=== PATIENT | female | born 1980 | race Caucasian/White ===

== ENCOUNTER → 2019-10-31 13:20 | Outpatient (CLI) | payer BC, SELFPAY ==
--- NOTE | ~2019-10-31 | MM_ITS ---
EXAMINATION: MM screening abisai BI w tejas HISTORY: Baseline screening mammogram TECHNIQUE: Craniocaudal and mediolateral oblique 3-D tomosynthesis images were obtained and synthetic 2-D images were generated. CAD analysis was submitted and interpreted. COMPARISON: None, baseline BREAST PARENCHYMAL COMPOSITION: The breasts are heterogeneously dense, which may obscure small masses . FINDINGS: RIGHT BREAST: There is a possible mass of the posterior third of the lower inner breast best apprecia lucia 8 cm from the nipple. LEFT BREAST: There is no evidence of suspicious mass, calcification, or architectural distortion to s uggest malignancy. IMPRESSION: 1. Possible right breast mass 2. Additional mammographic views and possible breast ultrasound are recommended to evaluate for winsome gaines and establish a baseline given that this is the first mammographic examination. BI-RADS Category 0: Incomplete: Needs additional imaging evaluation. Reviewed, dictated and finalized at location A. IMPRESSION: 1. Possible right breast mass 2. Additional mammographic views and possible breast ultrasound are recommended to evaluate for malignancy and establish a baseline given that this is the fir st mammographic examination. BI-RADS Category 0: Incomplete: Needs additional imaging evaluation.
== END ==
PROVIDERS: PCP Internal Medicine; Visit Provider Obstetrics & Gynecology
DX: Z12.31 Encounter for screening mammogram for malignant neoplasm of breast (principal); R92.8 Other abnormal and inconclusive findings on diagnostic imaging of breast
CPT/HCPCS: 77063; 77067

== ENCOUNTER → 2019-11-13 14:21 | Outpatient (CLI) | payer BC, SELFPAY ==
--- NOTE | ~2019-11-13 | MMUS_ITS ---
EXAMINATION: MM diagnostic mammo unilat RT, US breast RT limited HISTORY: Follow-up right breast mass TECHNIQUE: Additional 3-D tomosynthesis images of the right breast were performed and synthetic 2-D i mages were generated. CAD analysis was submitted and interpreted. High resolution right breast ultras ound was performed. COMPARISON: 10/31/2019 BREAST PARENCHYMAL COMPOSITION: The breasts are heterogenously dense, which may obscure small masses FINDINGS: MAMMOGRAPHIC FINDINGS: There is a mass in the lower inner quadrant of the left breast, middle third, measuring approximately 12 mm greatest dimension, partially obscured by fibroglandular tissue. ULTRASOUND: Right breast ultrasound: At 4:00, 4 cm from the nipple, there is an oval circumscribed hypoechoic mass measuring 11 x 5 x 11 m m. No internal vascularity or posterior features. No other mass identified. IMPRESSION: 1. Probable benign 11 mm right breast mass at 4:00, 4 cm from the nipple. 2. Recommend 6 month follow-up right diagnostic mammogram and ultrasound. BI-RADS category 3, probably benign findings. Reviewed, dictated and finalized at location A. IMPRESSION: 1. Probable benign 11 mm right breast mass at 4:00, 4 cm from the nipple. 2. Recommend 6 month follow-up right diagnostic mammogram and ultrasound. BI-RADS category 3, probably benign findings.
== END ==
PROVIDERS: PCP Internal Medicine; Visit Provider Obstetrics & Gynecology
DX: R92.8 Other abnormal and inconclusive findings on diagnostic imaging of breast (principal)
CPT/HCPCS: 76642; 77065

== ENCOUNTER 2020-06-11 08:19 | Outpatient (CLI) | payer BC, SELFPAY ==
[2020-06-11 08:34] LABS: Basophils Absolute Auto 0.04 K/mm3 (0.00-0.10); Basophils Percent Auto 0.8 % (0.0-1.0); Eosinophils Absolute Auto 0.12 K/mm3 (0.02-0.50); Eosinophils Percent Auto 2.3 % (1.0-6.0); Hematocrit 44.6 % (35.0-49.0); Immature Granulocyte Absolute 0.01 K/mm3 (0.00-0.00); Immature Granulocyte Percent A 0.2 % (0.0-0.0); Lymphocytes Absolute Auto 1.88 K/mm3 (1.10-4.50); Lymphocytes Percent Auto 36.4 % (18.0-42.0); Mean Corpuscular HGB Conc 33.6 g/dL (32.0-36.0); Mean Corpuscular Hemoglobin 30.2 pg (27.0-31.0); Mean Corpuscular Volume 89.7 fL (78.0-102.0); Mean Platelet Volume 10.8 fl (9.2-11.8); Monocytes Absolute Auto 0.46 K/mm3 (0.10-0.90); Monocytes Percent Auto 8.9 % (2.0-11.0); Neutrophils Absolute Auto 2.7 K/mm3 (1.7-7.2); Neutrophils Percent Auto 51.4 % (50.0-70.0); Platelet Count Result 216 K/mm3 (150-420); Red Blood Count 4.97 M/mm3 (4.20-5.40); Red Cell Distribution Width 12.5 % (11.6-14.4); White Blood Count 5.2 K/mm3 (4.8-10.8)
[2020-06-11 08:36] LABS: Add Urine Microscopic? NO; Appearance Urine Clear (Clear); Bilirubin Urine Negative (Negative); Blood Urine Negative (Negative); Color Urine Yellow (Yellow); Glucose Urine UA Negative (Negative); Ketones Urine Negative (Negative); Leukocyte Esterase Ur Negative LEU/UL (Negative); Nitrate Urine Negative (Negative); Protein Urine Negative (Negative); Specific Grav Ur 1.025 (1.010-1.020); Urobilinogen Urine 0.2 mg/dL (0.2-1.0)
[2020-06-11 09:28] LABS: Alanine Aminotransferase 29 U/L (14-59); Albumin Level 4.2 g/dL (3.4-5.0); Alkaline Phosphatase 77 U/L (46-116); Anion Gap 12 mmol/L (8-16); Aspartate Amino Transferase 18 U/L (15-37); Bilirubin,Total 0.6 mg/dL (0.00-1.00); Blood Urea Nitrogen 10 mg/dL (7-18); Calcium 8.9 mg/dL (8.5-10.1); Carbon Dioxide 25 mmol/L (21-32); Chloride 103 mmol/L (98-108); Cholesterol 131 mg/dL (0-200); Estimated Glomerular Filt Rate > 60; Free T4 Free Thyroxine 1.08 ng/dL (0.76-1.46); Glucose 103 mg/dL (70-99); HDL Direct 50 mg/dL (40-60); LDL Cholesterol Calculated 70 mg/dL (<130); Osmolality Calculated 289 mOsm/kg (285-295); Sodium 140 mmol/L (136-145); Thyroid Stimulating Hormone 1.32 uIU/mL (0.36-3.74); Total Protein 7.2 g/dL (6.4-8.2); Triglycerides 54 mg/dL (0-150)
[2020-06-13 09:49] LABS: Hemoglobin A1C 5.5 % (<5.7)
== END 2020-06-11 08:20 | disposition home or self-care (01) ==
LOC: CHSLAB 08:22
PROVIDERS: PCP Internal Medicine; Visit Provider Nurse Practitioner Family
DX: Z00.00 Encounter for general adult medical examination without abnormal findings (principal); R73.09 Other abnormal glucose
CPT/HCPCS: 36415; 80053; 80061; 81003; 83036; 84439; 84443; 85025

== ENCOUNTER → 2020-07-09 09:46 | Outpatient (CLI) | payer BC, SELFPAY ==
--- NOTE | ~2020-07-09 | MMUS_ITS ---
EXAMINATION: MM diagnostic abisai RT w tejsa, US breast RT limited HISTORY: Follow-up right breast mass TECHNIQUE: Additional 3-D tomosynthesis images of the right breast were performed and synthetic 2-D i mages were generated. CAD analysis was submitted and interpreted. High resolution Limited right breas t ultrasound was performed. COMPARISON: 10/31/2019 BREAST PARENCHYMAL COMPOSITION: The breasts are heterogenously dense, which may obscure small masses. FINDINGS: MAMMOGRAPHIC FINDINGS: There is a persistent mass in the lower inner quadrant of the right breast, middle third measuring 1. 5 cm maximum dimension on spot CC view. There are no suspicious calcifications or architectural disto rtion. ULTRASOUND: Limited right breast ultrasound: At 4:00, 4 cm from the nipple, there is a slightly irregular shaped hypoechoic mass measuring 12 x 10 x 6 mm without internal vascularity. Parallel orientation. Mixed posterior attenuation. IMPRESSION: 1. Slight enlargement of right breast mass at 4:00, 4 cm from the nipple. 2. Ultrasound-guided right breast biopsy recommended. BI-RADS category 3, probably benign findings. Reviewed, dictated and finalized at location A. IMPRESSION: 1. Slight enlargement of right breast mass at 4:00, 4 cm from the nipple. 2. Ultrasound-guided right breast biopsy recommended. BI-RADS category 3, probably benign findings.
== END ==
PROVIDERS: PCP Internal Medicine; Visit Provider Obstetrics & Gynecology
DX: N63.14 Unspecified lump in the right breast, lower inner quadrant (principal)
CPT/HCPCS: 76642; 77061; 77065; G0279

== ENCOUNTER 2022-01-30 07:39 | Outpatient (CLI) | payer BC, SELFPAY ==
[2022-01-30 08:00] LABS: Basophils Absolute Auto 0.02 K/mm3 (0.00-0.10); Basophils Percent Auto 0.4 % (0.0-1.0); Eosinophils Absolute Auto 0.07 K/mm3 (0.02-0.50); Eosinophils Percent Auto 1.6 % (1.0-6.0); Hematocrit 46.8 % (35.0-49.0); Hemoglobin 15.8 g/dL (12.0-15.0); Immature Granulocyte Absolute 0.01 K/mm3 (0.00-0.00); Immature Granulocyte Percent A 0.2 % (0.0-0.0); Lymphocytes Absolute Auto 1.69 K/mm3 (1.10-4.50); Lymphocytes Percent Auto 37.5 % (18.0-42.0); Mean Corpuscular HGB Conc 33.8 g/dL (32.0-36.0); Mean Corpuscular Volume 91.8 fL (78.0-102.0); Mean Platelet Volume 11.4 fl (9.2-11.8); Monocytes Absolute Auto 0.38 K/mm3 (0.10-0.90); Monocytes Percent Auto 8.4 % (2.0-11.0); Neutrophils Absolute Auto 2.3 K/mm3 (1.7-7.2); Neutrophils Percent Auto 51.9 % (50.0-70.0); Platelet Count Result 197 K/mm3 (150-420); Red Cell Distribution Width 12.1 % (11.6-14.4); White Blood Count 4.5 K/mm3 (4.8-10.8)
[2022-01-30 08:24] LABS: Hemoglobin A1C 5.4 % (<5.7)
[2022-01-30 09:10] LABS: Alanine Aminotransferase 25 U/L (14-59); Albumin Level 4.3 g/dL (3.4-5.0); Alkaline Phosphatase 78 U/L (46-116); Anion Gap 9 mmol/L (8-16); Aspartate Amino Transferase 15 U/L (15-37); Bilirubin,Total 0.5 mg/dL (0.00-1.00); Blood Urea Nitrogen 13 mg/dL (7-18); Calcium 9.1 mg/dL (8.5-10.1); Carbon Dioxide 28 mmol/L (21-32); Chloride 104 mmol/L (98-108); Cholesterol 142 mg/dL (0-200); Estimated Glomerular Filt Rate > 60; Ferritin 118 ng/mL (8-252); Folic Acid 19.5 ng/mL (8.6->20); Glucose 89 mg/dL (70-99); HDL Direct 48 mg/dL (40-60); Iron 113 ug/dL (50-170); LDL Cholesterol Calculated 75 mg/dL (<130); Osmolality Calculated 291 mOsm/kg (285-295); Percent Iron Saturation 39 % (12-57); Potassium 4.1 mmol/L (3.5-5.1); Sodium 141 mmol/L (136-145); Total Protein 7.3 g/dL (6.4-8.2); Triglycerides 93 mg/dL (0-150); Vitamin B12 664 pg/mL (193-986)
[2022-01-30 09:11] LABS: Thyroid Stimulating Hormone Reflex 1.41 u/IU/mL (0.36-3.74)
[2022-02-02 14:36] LABS: FSH 4.6 mIU/mL (***); Progesterone 9.5 ng/mL (***); Prolactin 13.9 ng/mL (***)
[2022-02-04 12:22] LABS: Vitamin D 25 Hydroxy 43 ng/mL (30-100)
[2022-02-05 21:17] LABS: Estradiol, Ultrasensitive 80 pg/mL
== END 2022-01-30 07:40 | disposition home or self-care (01) ==
PROVIDERS: PCP Internal Medicine; Visit Provider Obstetrics & Gynecology
DX: Z00.00 Encounter for general adult medical examination without abnormal findings (principal); R53.83 Other fatigue
CPT/HCPCS: 36415; 80053; 80061; 82306; 82607; 82670; 82728; 82746; 83001; 83036; 83540; 83550; 84144; 84146; 84443; 85025

== ENCOUNTER → 2022-04-23 14:08 | Outpatient (CLI) | payer BC, SELFPAY ==
--- NOTE | ~2022-04-23 | MM_ITS ---
EXAMINATION: MM screening abisai BI w tejas HISTORY: Screening mammogram TECHNIQUE: Craniocaudal and mediolateral oblique 3-D tomosynthesis images were obtained and synthetic 2-D images were generated. CAD analysis was submitted and interpreted. COMPARISON: No prior mammogram is available for comparison at this institution. BREAST PARENCHYMAL COMPOSITION: The breasts are heterogeneously dense, which may obscure small masses . FINDINGS: Biopsy marker on the right; history of prior benign right breast biopsies in 1999 and 2020. There is no evidence of suspicious mass, calcification, or architectural distortion to suggest malig eder in either breast. There has been no suspicious interval change. IMPRESSION: 1. No mammographic evidence of malignancy. 2. Recommend routine screening mammography in one year. BI-RADS Category 1: Negative Reviewed, dictated and finalized at location A. ER OPERATOR PIN
== END ==
PROVIDERS: PCP Internal Medicine; Visit Provider Obstetrics & Gynecology
DX: Z12.31 Encounter for screening mammogram for malignant neoplasm of breast (principal)
CPT/HCPCS: 77063; 77067

== ENCOUNTER 2022-06-25 13:51 | Emergency (ER) | payer BC, SELFPAY ==
[2022-06-25] VITALS (9 sets, daily range): BP systolic 139–175; BP diastolic 100–112; PULSE 70–89; RESP 14–18; TEMP 36.9; O2SAT 98–100
--- NOTE | 2022-06-25 14:22 | ECG_ITS ---
Measurements Intervals [place] Rate: 73 P: 18 SC: 163 QRS: 16 QRSD: 93 T: 57 QT: 390 QTc: 431 Interpretive Statements SINUS RHYTHM DELAYED PRECORDIAL R/S TRANSITION BASELINE ARTIFACT- I, II, AVR BORDERLINE ECG NO PREVIOUS ECG AVAILABLE FOR COMPARISON Electronically Signed On 06-25-2022 15:50:30 BRAILLE CODER by Mesfin Stevenson D.O.
[2022-06-25] MEDS: ALPRAZolam (*CRX) 0.5 MG TABLET PO (14:36)
[2022-06-25 14:41] LABS: Basophils Absolute Auto 0.04 K/mm3 (0.00-0.10); Basophils Percent Auto 0.6 % (0.0-1.0); Eosinophils Absolute Auto 0.14 K/mm3 (0.02-0.50); Eosinophils Percent Auto 1.9 % (1.0-6.0); Hematocrit 45.3 % (35.0-49.0); Hemoglobin 15.5 g/dL (12.0-15.0); Immature Granulocyte Absolute 0.02 K/mm3 (0.00-0.00); Immature Granulocyte Percent A 0.3 % (0.0-0.0); Lymphocytes Absolute Auto 2.06 K/mm3 (1.10-4.50); Lymphocytes Percent Auto 28.5 % (18.0-42.0); Mean Corpuscular HGB Conc 34.2 g/dL (32.0-36.0); Mean Corpuscular Hemoglobin 31.3 pg (27.0-31.0); Mean Corpuscular Volume 91.3 fL (78.0-102.0); Monocytes Percent Auto 6.9 % (2.0-11.0); Neutrophils Absolute Auto 4.5 K/mm3 (1.7-7.2); Neutrophils Percent Auto 61.8 % (50.0-70.0); Platelet Count Result 228 K/mm3 (150-420); Red Blood Count 4.96 M/mm3 (4.20-5.40); Red Cell Distribution Width 12.5 % (11.6-14.4); White Blood Count 7.2 K/mm3 (4.8-10.8)
[2022-06-25 14:56] LABS: Alanine Aminotransferase 19 U/L (14-59); Albumin Level 4.2 g/dL (3.4-5.0); Alkaline Phosphatase 75 U/L (46-116); Anion Gap 10 mmol/L (8-16); Aspartate Amino Transferase 18 U/L (15-37); Bilirubin,Total 0.3 mg/dL (0.00-1.00); Blood Urea Nitrogen 13 mg/dL (7-18); Calcium 9.3 mg/dL (8.5-10.1); Carbon Dioxide 27 mmol/L (21-32); Chloride 105 mmol/L (98-108); Estimated CRCL calculation 84 ml/min; Estimated Glomerular Filt Rate > 60; Glucose 99 mg/dL (70-99); Osmolality Calculated 294 mOsm/kg (285-295); Potassium 3.6 mmol/L (3.5-5.1); Sodium 142 mmol/L (136-145); Total Protein 7.8 g/dL (6.4-8.2)
[2022-06-25] MEDS: LOSARTAN POTASSIUM 25 MG TABLET PO (15:20)
--- NOTE | 2022-06-25 15:25 | ED.GENADULT ---
HPI - General Adult General Chief complaint: Unspecified Stated complaint: high blood pressure Time Seen by Provider: 06/25/22 14:22 Source: patient Mode of arrival: ambulatory Limitations: no limitations History of Present Illness HPI narrative: this is a 41-year-old female that presents with elevated blood pressure, the patient states that she has been having elevated blood pressure readings but not quite as high as it was today initially her systolic blood pressure was 203, patient had a mild headache some mild blurry vision with no chest pain no shortness of breath no fever chills no abdominal pain no flank pain or dysuria. Onset (ago): day(s) Related Data Allergies Allergy/AdvReac Type Severity Reaction Status Date / Time No Known Allergies Allergy Verified 06/25/22 14:16 Review of Systems Review of Systems: All systems reviewed & are unremarkable except as noted in HPI and below PMFSH Past Medical History Medical History Encounter for insertion of mirena IUD 2017 Encounter for IUD removal Family History Family History Grandparent Breast cancer Mother Cancer of kidney Father Diabetes mellitus Social History Social History Smoking status: Never smoker Alcohol intake: current Substance use: never Substance use type: does not use Living arrangements: with family Occupation/Education: occupation Gender identity (if verbalized by the patient): Female Sexual Orientation (if Verbalized by the Patient): Straight or Heterosexual Exam Const: General: cooperative, healthy appearing, comfortable, no acute distress and well developed HENMT: Head: normal to inspection Ears: hearing grossly normal bilaterally Face/Nose/Sinus: Normal external nose present Face and sinus: normal facial exam Teeth and gingiva: dentition normal Throat: posterior oropharynx normal Eyes: General: appearance normal, both eyes and all related structures Visual Levin: normal visual levin by confrontation Alignment and Position: alignment normal Periorbital: periorbital findings normal Eyelids: eyelids normal Conjunctivae: conjunctivae normal Neck: Neck: normal visual inspection, full ROM, no lymphadenopathy and no meningeal signs Chest: Chest palpation & inspection: normal inspection of the chest Resp: Effort & Inspection: normal respiratory effort and able to speak in complete sentences Cardio: Jugular venous distension: no JVD Palpation: normal PMI Rate: regular rate Rhythm: regular rhythm Heart sounds: S1 normal heart sound present and S2 normal heart sound present GI: Inspection: normal to inspection : General: Yes bimanual renal exam normal bilaterally Back/Spine/Pelvis: Back: no CVA tenderness Cervical Spine: normal cervical lordosis and cervical ROM normal Thoracic/Lumbar Spine: thoracic and lumbar spine normal to inspection and thoraco-lumbar ROM normal Skin: General skin exam: normal color and no rashes or lesions noted Neuro: General: oriented to person, oriented to place, oriented to time and patient oriented x3 Extrem: General: normal to inspection, full ROM and capillary refill normal Psych: Appearance: grossly normal Mental Status: mental status grossly normal Affect: Anxious affect present Attitude: cooperative Course Course Emergency Course: Labs reviewed with patient and within normal limits EKG reviewed which shows no acute ST or T changes, urinalysis is reviewed. The patient did feel anxious and initially blood pressure was 203 systolic and then subsequently was 175/112 and patient did receive a dose of Xanax current blood pressure 139/102 and will give a dose of p.o. losartan 25mg. spoke to patient about regular diet exercise to reduce her blood pressure, limit alcohol, limit caffeine and limit salt intake. Vit
[2022-06-25 15:33] LABS: Appearance Urine Clear (Clear); Bilirubin Urine Negative (Negative); Blood Urine 3+ (Negative); Color Urine Light Yellow (Yellow); Glucose Urine UA Negative (Negative); Ketones Urine Negative (Negative); Leukocyte Esterase Ur 1+ LEU/UL (Negative); Nitrate Urine Negative (Negative); Protein Urine Negative (Negative)
[2022-06-25 15:37] LABS: Add Urine Microscopic? YES
[2022-06-25 15:38] LABS: Bacteria Urine 2+ /hpf; Squamous Epithelial Cell Urine Few /hpf (Few)
--- NOTE | 2022-06-27 18:23 | PC.NURSE ---
FINAL URINE CULTURE REPORT: No growth. no action needed.
== END 2022-06-25 15:57 | disposition home or self-care (01) ==
PROVIDERS: Emergency Provider Emergency Medicine; PCP Internal Medicine
DX: I10 Essential (primary) hypertension (principal); N39.0 Urinary tract infection, site not specified
CPT/HCPCS: 36415; 80053; 81001; 85025; 87086; 93005; 99283; A9270

== ENCOUNTER 2023-07-27 16:04 | Outpatient (CLI) | payer BC, SELFPAY ==
--- NOTE | ~2023-07-27 | MM_ITS ---
EXAMINATION: MM screening abisai BI w tejas HISTORY: Screening TECHNIQUE: Craniocaudal and mediolateral oblique 3-D tomosynthesis images were obtained and synthetic 2-D images were generated. CAD analysis was submitted and interpreted. COMPARISON: Comparison to multiple prior studies sequentially, with oldest reviewed study dated 10/2019. BREAST PARENCHYMAL COMPOSITION: Dense: The breasts are heterogeneously dense, which may obscure small masses FINDINGS: There is no evidence of suspicious mass, calcification, or architectural distortion to sugg est malignancy in either breast. There has been no suspicious interval change. IMPRESSION: 1. No mammographic evidence of malignancy. 2. Recommend routine screening mammography in one year. BI-RADS Category 1: Negative Reviewed, dictated and finalized at location A.
== END 2023-07-27 16:05 ==
LOC: MICIMG 16:05
PROVIDERS: PCP Obstetrics & Gynecology; Visit Provider Obstetrics & Gynecology
DX: Z12.31 Encounter for screening mammogram for malignant neoplasm of breast (principal)
CPT/HCPCS: 77063; 77067

== ENCOUNTER 2024-08-11 09:53 | Outpatient (CLI) | payer BC, SELFPAY ==
--- NOTE | ~2024-08-11 | MM_ITS ---
EXAMINATION: MM screening abisai BI w tejas HISTORY: Screening TECHNIQUE: Craniocaudal and mediolateral oblique 3-D tomosynthesis images were obtained and synthetic 2-D images were generated. CAD analysis was submitted and interpreted. COMPARISON: Comparison to multiple prior studies sequentially, with oldest reviewed study dated 10/2019. BREAST PARENCHYMAL COMPOSITION: Dense: The breasts are heterogeneously dense, which may obscure small masses FINDINGS: The left breast is stable without evidence for malignancy. There is focal low-density mass in the lower inner quadrant of the right breast with associated tissue marker which has increased in size compared with 2023. IMPRESSION: 1. Enlarging right breast mass, lower inner quadrant, posterior third. 2. Additional mammographic views and possible breast ultrasound are recommended. BI-RADS Category 0: Incomplete: Needs additional imaging evaluation. Reviewed, dictated and finalized at location B. IMPRESSION: 1. Enlarging right breast mass, lower inner quadrant, posterior third. 2. Additional mammographic views and possible breast ultrasound are recommended . BI-RADS Category 0: Incomplete: Needs additional imaging evaluation.
== END 2024-08-11 09:54 | disposition home or self-care (01) ==
PROVIDERS: Visit Provider Obstetrics & Gynecology
DX: Z12.31 Encounter for screening mammogram for malignant neoplasm of breast (principal); R92.8 Other abnormal and inconclusive findings on diagnostic imaging of breast
CPT/HCPCS: 77063; 77067

== ENCOUNTER 2024-08-31 08:17 | Outpatient (CLI) | payer BC, SELFPAY ==
--- NOTE | ~2024-08-31 | MMUS_ITS ---
EXAMINATION: MM diagnostic abisai RT w tejas, US breast RT limited HISTORY: Follow-up right breast asymmetry TECHNIQUE: Additional 3-D tomosynthesis images of the right breast were performed and synthetic 2-D i mages were generated. CAD analysis was submitted and interpreted. High resolution Limited right breas t ultrasound was performed. COMPARISON: Comparison to multiple prior studies sequentially, with oldest reviewed study dated 10/2021. BREAST PARENCHYMAL COMPOSITION: Dense: The breasts are heterogeneously dense, which may obscure small masses FINDINGS: MAMMOGRAPHIC FINDINGS: There is a focal asymmetry in the lower inner quadrant of the right breast with adjacent tissue marke r. There is previous benign biopsy of the right breast. No suspicious calcifications or architectural distortion. ULTRASOUND: Limited right breast ultrasound: At 4:00, 5 cm from the nipple there is an oval hypoechoic 9 mm mass with parallel orientation, no internal vascularity and no significant posterior features. This is not significantly changed compared with 07/09/2020 For differences of technique. IMPRESSION: 1. Stable right breast mass at 4:00, 5 cm from the nipple, considered benign. No suspicious new nayla s, calcifications or architectural distortion in the right breast to suggest malignancy. 2. Routine yearly screening mammogram and regular clinical breast examination are recommended. BI-RADS Category 2: Benign finding(s). Reviewed, dictated and finalized at location A. IMPRESSION: 1. Stable right breast mass at 4:00, 5 cm from the nipple, considered benign. N o suspicious new masses, calcifications or architectural distortion in the righ t breast to suggest malignancy. 2. Routine yearly screening mammogram and regular clinical breast examination a re recommended. BI-RADS Category 2: Benign finding(s).
== END 2024-08-31 08:18 | disposition home or self-care (01) ==
LOC: MICIMG 08:17
PROVIDERS: Visit Provider Obstetrics & Gynecology
DX: N63.14 Unspecified lump in the right breast, lower inner quadrant (principal)
CPT/HCPCS: 76642; 77061; 77065; G0279